=== PATIENT | female | born 1955 | race Caucasian/White ===

== ENCOUNTER 2022-04-24 09:21 | Emergency (ER) | payer OTHER ==
[~2022-04-24] VITALS: Ht 177.8 cm; Wt 158.8 kg
[2022-04-24 10:49] LABS: Basophils # (auto) 0.1 10 ^3/uL (0-0.2); Basophils % (auto) 0.6 % (0.0-2.0); Eosinophils # (auto) 0.1 10 ^3/uL (0-0.8); Eosinophils % (auto) 1.3 % (0.0-7.0); Hematocrit 40.2 % (36.0-46.0); Lymphocytes % (auto) 21.1 % (10.0-50.0); Mean Corpuscular Hemoglobin 30.4 pg (28.0-32.0); Mean Corpuscular Hgb Conc. 34.7 g/dL (32.0-36.0); Mean Corpuscular Volume 87.6 fL (80.0-100.0); Monocytes # (auto) 0.5 10 ^3/uL (0-1.3); Monocytes % (auto) 4.9 % (0.0-12.0); Neutrophils # (auto) 6.7 10 ^3/uL (1.6-8.6); Neutrophils % (auto) 72.1 % (37.0-80.0); Red Blood Cells 4.59 10^6/uL (4.0-5.20); Red Cell Distribution Width 14.1 % (11.8-14.3); White Blood Cell 9.3 10^3/uL (4.4-10.8)
[2022-04-24 11:09] LABS: Albumin 3.5 g/dL (3.4-5.0); Potassium 4.2 mmol/L (3.5-5.1)
[2022-04-24 11:17] LABS: Bilirubin, Total 0.5 mg/dL (0.2-1.0); Total Protein 7.7 g/dL (6.4-8.2)
[2022-04-24] MEDS ORDERED: FUROSEMIDE 20 MG TAB PO ONE (14:45)
[2022-04-24] MEDS ORDERED: PRED20TA2 PO (15:46)
[2022-04-24] MEDS ORDERED: PANT40TA2 PO (15:46)
[2022-04-24] MEDS ORDERED: LEVO-28 PO (15:46)
[2022-04-24 15:53] VITALS: BP 153/92
== END 2022-04-24 16:02 | disposition home or self-care (01) ==
LOC: ER 09:21
DX: I11.0 Hypertensive heart disease with heart failure (principal); I50.9 Heart failure, unspecified; J45.909 Unspecified asthma, uncomplicated; Z88.0 Allergy status to penicillin; Z88.8 Allergy status to other drugs, medicaments and biological substances
CPT/HCPCS: 36415; 71045; 80053; 84484; 85025; 93005

== ENCOUNTER 2024-10-06 12:01 | Emergency (ER) | payer OTHER ==
[~2024-10-06] VITALS: Ht 177.8 cm; Wt 177.0 kg
[~2024-10-06 12:01] MED LIST: LEVO500T91 PO; PANT40TA2 PO; PRED20TA2 PO
--- NOTE | 2024-10-06 12:24 | ED.PDOC ---
SOB-HPI HPI Comments 69y F who presents to the ED via EMS for chief complaint of shortness of breath. Per EMS , pt has been having shortness of breath since last Saturday getting progressively worse. Pt states she has history of CHF and states she was not taking her Lasix due to the constant need to use the restroom but states she started back up 2 days prior. Pt states earlier this AM, she had exacerbation of her shortness of breath and called EMS. Upon EMS arrival, pt had vitals checked and 02 sat was 93% on room air and started to complaint of associated chest pain. Pt was given breathing treatment with 0.4 Nitro and pt after treatment felt better with noted 02 sat of 97% on room air and all other vitals in normal range. Pt otherwise in the ED, denies diaphoresis, palpitations, nausea, vomiting, fever, cough, chills, headache or dizziness. Pt otherwise denies any other symptoms at this time. Vitals: Temp:98.4F Heart rate: 87 RR: 16 BP: 130/103 02 sat: 97% on room air PMH: HTN, CHF, HLD, ASTHMA, HYPOTHYROIDISM, AFIB PSH: DENIES Social history: DENIES tobacco use, DENIES ETOH use, DENIES drug use Meds: KCL, LASIX, LEVOTHYROXINE, METOPROLOL, XARELTO, ALBUTEROL, DILTIAZEM Allergies: PENICILLINS, CEPHALEXIN bradnie: HPI: Poor Historian. Past Medcial History: Past Surgical History: REVIEW OF SYSTEMS: CONSTITUTIONAL: Denies acute: fever, diaphoresis, chills, HEAD: Denies acute: headache, photophobia Eyes: Denies acute: Double vision, vision loss, eye pain, eye discharge. EARS: Denies acute: tinnitus, hearing loss, ear discharge, ear pain, THROAT: Denies acute: sore throat, swelling, difficulty swallowing , pain with swallowing, change in voice. NECK: Denies acute: neck pain, neck swelling, stiff neck. HEART: Denies acute : palpitations, LUNGS: Denies acute: wheezing, cough, hemoptysis ABDOMEN: Denies acute: abdominal pain, Nausea, Vomiting, diarrhea, melena , hematemesis, hematochezia SKIN: Denies acute: rash, redness, lesions, itchiness. EXTREMITIES: Denies acute: calf pain, numbness, tingling, weakness, denies pain in extremity. Denies acute: Low back pain. Neuro: Denies acute: focal neurological deficit, motor or sensory focal neurological deficit, tremors, seizure like activity, confusion, dizziness, change in mental status, loss of bowel or bladder function, cauda equina like symptoms. : Denies acute: dysuria, hematuria, flank pain, increase in urinary frequency. PSYCH: Denies acute: hallucination, suicidal ideation, homicidal ideation. FEMALE: Denies acute: abnormal vaginal bleeding, foul odor, unusual discharge. PHYSICAL EXAM: General: no acute distress, awake and alert. Head: normocephalic, atraumatic. Neck: supple, trachea is midline, no swelling. Throat: Normal phonation. Eyes:, no erythema, no purulent discharge, no proptosis, no icterus. Heart: regular rate, regular rhythm, no significant murmur appreciated. Lungs: no apparent respiratory distress, Able to speak in full sentences. Bilateral wheezing, bilateral rhonchi, no crackles. No stridors Abdomen: non tender to palpation, non distended, soft, no guarding, no rebound, + bowel sounds. Morbidly obese Neuro: Awake, Alert, oriented to name, self, situation, follows commands GCS=15. Speech is normal. Skin: no petechia, no purpura, no cyanosis, non-pale, not jaundice. Lower extremities: --1/2- Pitting edema no deformity, no focal swelling, no calf TTP. Makes eye contact. moves all four extremities. Face: no apparent facial droop. Chief Complaint: Shortness of Breath Time Seen by MD: 12:19 Reviewed notes: Stave Grader Notes, Medications, Allergies Information Source: Patient, Emergency Med Personnel Mode of Arrival: EMS Brought in by: EMS Past Medical History PAST MEDICAL HISTORY: Asthma, CHF, HTN, Thyroid Surgical History: Denies all surgeries EGG BREAKER History: No Pertinent EGG BREAKER History Family History Family History: Reviewed,noncontributory to illness Social History Smoker: Non-Smoker Alcohol: Denies ETOH Use Drugs: Denies Drug Use Lives In: Home Was a procedure done? Was a procedure done?: No Differential Dx Differential Diagnosis: Other (DDx include ACS, unstable angina, anxiety, PE, pneumothroax, neoplasm, cardiac ischemia, COPD, asthma, CHF, pleural effusion, tobacco abuse, pneumonia, hypoxia, hypercapnia, anemia., infection/sepsis., pulmonary edema. Asthma, Cardiac tamponade, infection.) X-Ray, Labs, Meds, VS Vital Signs Date Time Temp Pulse Resp B/P (MAP) Pulse Ox O2 Delivery O2 Flow Rate FiO2 10/06/24 19:50 92 17 Room Air* 0 21 10/06/24 19:50 98.1 92 17 144/89 (107) 95 98.1 10/06/24 13:06 22 94 Room Air* 0 21 10/06/24 12:33 16 93 Room Air* 0 21 10/06/24 12:27 98.1 82 16 130/103 (112) 97 Lab Test 10/06/24 15:50 10/06/24 13:43 10/06/24 12:30 Range/Units Troponin I High Sensitivity 4 4 3 L </=34 ng/L White Blood Count 9.5 4.4-10.8 10^3/uL Red Blood Count 4.59 4.0-5.20 10^6/uL Hemoglobin 14.0 12.2-16.2 g/dL Hematocrit 41.6 36.0-46.0 % Mean Corpuscular Volume 90.6 80.0-100.0 fL Mean Corpuscular Hemoglobin 30.5 28.0-32.0 pg Mean Corpuscular Hemoglobin Concent 33.7 32.0-36.0 g/dL Red Cell Distribution Width 13.9 11.8-14.3 % Platelet Count 248 140-450 10^3/uL Mean Platelet Volume 6.2 L 6.9-10.8 fL Neutrophils (%) (Auto) 72.7 37.0-80.0 % Lymphocytes (%) (Auto) 18.1 10.0-50.0 % Monocytes (%) (Auto) 6.0 0.0-12.0 % Eosinophils (%) (Auto) 2.7 0.0-7.0 % Basophils (%) (Auto) 0.5 0.0-2.0 % Neutrophils # (Auto) 6.9 1.6-8.6 10 ^3/uL Lymphocytes # (Auto) 1.7 0.4-5.4 10 ^3/uL Monocytes # (Auto) 0.6 0-1.3 10 ^3/uL Eosinophils # (Auto) 0.3 0-0.8 10 ^3/uL Basophils # (Auto) 0 0-0.2 10 ^3/uL Nucleated Red Blood Cells 0.0 % Sodium Level 141 136-145 mmol/L Potassium Level 4.5 3.5-5.1 mmol/L Chloride Level 107 98-107 mmol/L Carbon Dioxide Level 33 H 20-31 mmol/L Anion Gap 1 L 5-15 Blood Urea Nitrogen 13 9-23 mg/dL Creatinine 0.77 0.550-1.02 mg/dL Glomerular Filtration Rate Calc 84 >90 mL/min BUN/Creatinine Ratio 16.9 10.0-20.0 Serum Glucose 102 74-106 mg/dL Calcium Level 9.5 8.7-10.4 mg/dL Magnesium Level 2.1 1.6-2.6 mg/dL Total Bilirubin 0.7 0.2-1.0 mg/dL Aspartate Amino Transferase (AST) 16 13-40 U/L Alanine Aminotransferase (ALT) 23 7-40 U/L Alkaline Phosphatase 81 46-116 U/L B-Type Natriuretic Peptide 115.57 0-100 pg/mL Total Protein 6.9 5.7-8.2 g/dL Albumin 4.4 3.2-4.8 g/dL Current Medications Medications (Trade) Dose Ordered Sig/Sabine Route Start Time Stop Time Status Last Admin Albuterol (Ventolin Medneb) 2.5 mg ONCE ONCE [facility] 10/06/24 12:30 10/06/24 12:31 DC 10/06/24 13:04 Ipratropium [place] (Atrovent Medneb) 1 mg ONCE ONCE [facility] 10/06/24 12:30 10/06/24 12:31 [place] 10/06/24 13:05 [place] [id number] Ph: [phone] DIAGNOSTIC IMAGING Diagnostic Imaging Report : [id number] Signed PATIENT: BRANDIE HOPE ACCT: [id number] UNIT: [id number] : 1955 LOC: ER ROOM / BED: / AGE / SEX: 69 / F ADM STATUS: REG ER SERVICE 1216 ORDERING PHYSICIAN: SE SOLIS DO PROCEDURE(s): CXRP - CHEST PORTABLE REASON: sob ORDER NUMBER(s): [id number], ACCESSION NUMBER(s): [id number] EXAM: XY CHEST PORTABLE Indication:sob Technique: Single frontal view of the chest was obtained Comparison: CHEST PORTABLE on DOS: 04/24/22, CXRP on DOS: 04/24/22 FINDINGS: Lines and Tubes: None Lungs: No focal consolidation. Pleura: No effusion. No pneumothorax. Cardiomediastinal contours: Unremarkable Bones: No acute osseous abnormality. IMPRESSION: No acute cardiopulmonary disease. ATED BY: LYNN RANDALL MD DICTATED DATE/TIME: 10/06/24 135 SIGNED BY: LYNN RANDALL MD SIGNED DATE/TIME: 10/06/241355 CC: Time of 1ST Reevaluation: 20:06 (The case was discussed with the admitting team (HPI, physical exam, labs and diagnostic tests that were available at the time of disposition, ED course, treatment plan) on the phone. They agreed to evaluate the patient and make the proper disposition. Please see their consultation notes and final disposition. DOE Lopez. ) Reevaluation 1ST: Improved Time of 2ND Reevaluation: 20:10 (The nurse told me that the patient refused Lasix and Solu-Medrol and wants to leave against medical advice. She does not want to stay in the hospital anymore.) Reevaluation 2ND: Unchanged Patient Education/Counseling: Diagnosis, Treatment, Prognosis Family Education/Counseling: No Family Present Comments Left against medical advice Patient presented with the above HPI.--dyspnea respiratory distress----workup was initiated. patient was found with the above mentioned diagnosis. Patient was ordered DuoNeb treatment and Solu-Medrol and Lasix. Patient only received a DuoNeb treatment. There was a delay in her receiving Lasix and Solu- Medrol. Patient ED course and VS have been stabilized. Patient has been reassessed in the ED and remained in a stable condition. Patient has been observed in the ED adequate length of time to insure improvement/stability. patient was admitted to the medicine team for further evaluation and treatment of their presentation. However patient decided to leave against medical advice. She did not want to wait for a bed this long. She also declined Lasix and Solu-Medrol. All the reports of any imaging studies that were ordered by myself were reviewed by myself. Departure 1 Departure Time of Disposition: 20:10 Impression: Primary Impression: CHF exacerbation Additional Impressions: COPD exacerbation Left against medical advice Disposition: LEFT AGAINST MEDICAL ADVICE Admit to: Tele Condition: Guarded Additional Instructions: You are leaving against medical advice. Please seek medical help HALI. You have an inhaler at home please take it as needed. You have Lasix at home please use it as prescribed. Follow up with Cardiology and pulmonology HALI. You are welcome to return to the emergency department any time if you change your mind. Discharged With: Self Critical Care Note Critical Care Time?: Yes (45 min-critical care time only) Heart Score Heart Score: Heart Score Response (Comments) Value History Slightly Suspicious 0 EKG Normal 0 Age >65 2 Risk Factors >3 or Hx ASHD 2 Troponin Normal limit 0 Total 4 I personally scribed for SE SOLIS DO ([email or web address]) on 10/06/24 at 12:24. Electronically submitted by Annika Loo ([email or web address]). I personally scribed for SE SOLIS DO ([email or web address]) on 10/06/24 at 14:53. Electronically submitted by Annika Loo ([email or web address]). I personally scribed for SE SOLIS DO ([email or web address]) on 10/06/24 at 20:10. Electr onically submitted by Annika Loo ([email or web address]). SE SOLIS DO Oct 06, 2024 12:24
[2024-10-06 12:47] LABS: Basophils # (auto) 0 10 ^3/uL (0-0.2); Basophils % (auto) 0.5 % (0.0-2.0); Eosinophils # (auto) 0.3 10 ^3/uL (0-0.8); Eosinophils % (auto) 2.7 % (0.0-7.0); Hematocrit 41.6 % (36.0-46.0); Lymphocytes # (auto) 1.7 10 ^3/uL (0.4-5.4); Lymphocytes % (auto) 18.1 % (10.0-50.0); Mean Corpuscular Hemoglobin 30.5 pg (28.0-32.0); Mean Corpuscular Hgb Conc. 33.7 g/dL (32.0-36.0); Mean Corpuscular Volume 90.6 fL (80.0-100.0); Monocytes # (auto) 0.6 10 ^3/uL (0-1.3); Neutrophils # (auto) 6.9 10 ^3/uL (1.6-8.6); Neutrophils % (auto) 72.7 % (37.0-80.0); Platelet Count (auto) 248 10^3/uL (140-450); Red Blood Cells 4.59 10^6/uL (4.0-5.20); Red Cell Distribution Width 13.9 % (11.8-14.3); White Blood Cell 9.5 10^3/uL (4.4-10.8)
[2024-10-06 13:01] LABS: Alanine Aminotransferase 23 U/L (7-40); Albumin 4.4 g/dL (3.2-4.8); Alkaline Phosphatase 81 U/L (46-116); Anion Gap 1 (5-15); Aspartate Aminotransferase 16 U/L (13-40); BUN/Creatinine Ratio 16.9 (10.0-20.0); Blood Urea Nitrogen 13 mg/dL (9-23); Calcium 9.5 mg/dL (8.7-10.4); Carbon Dioxide 33 mmol/L (20-31); Chloride 107 mmol/L (98-107); Glucose 102 mg/dL (74-106); Magnesium 2.1 mg/dL (1.6-2.6); Potassium 4.5 mmol/L (3.5-5.1); Sodium 141 mmol/L (136-145)
[2024-10-06 13:02] LABS: Bilirubin, Total 0.7 mg/dL (0.2-1.0); Total Protein 6.9 g/dL (5.7-8.2)
[2024-10-06] MEDS: ALBUTEROL SULF 2.5 MG/0.5ML(0.5%) NEB SOLN NEB ONE (13:04)
[2024-10-06] MEDS: IPRATROPIUM BROM 0.5 MG/2.5ML INH SOL NEB ONE (13:05)
--- NOTE | 2024-10-06 13:58 | DVH ---
EXAM: XY CHEST PORTABLE Indication:sob Technique: Single frontal view of the chest was obtained Comparison: CHEST PORTABLE on DOS: 04/24/22, CXRP on DOS: 04/24/22 FINDINGS: Lines and Tubes: None Lungs: No focal consolidation. Pleura: No effusion. No pneumothorax. Cardiomediastinal contours: Unremarkable Bones: No acute osseous abnormality. IMPRESSION: No acute cardiopulmonary disease.
[2024-10-06 19:50] VITALS: BP 144/89; PULSE 92; RESP 17; TEMP 98.1; O2SAT 95
[2024-10-06] MEDS: methylPREDNISolone SOD SUCC 125 MG/2 ML VL IV ONE (20:19)
[2024-10-06] MEDS: FUROSEMIDE 100 MG/10ML VIAL IV ONE (20:19)
--- NOTE | 2024-10-07 14:46 | DVHINCON2 ---
Date Seen: Oct 06, 2024 Referring Physician ER Physician Dr. Sinha Reason for Consultation Shortness of breath CHF exacerbation History of Present Illness 69-year-old female with a known history of congestive heart failure, hypertension, hypothyroidism dyslipidemia to the hospital with the acute shortness of breath patient was found to have mild CHF exacerbation. Patient does take Lasix at home but she has stopped taking it as it was making her being more and more in the evening. Mentioned the patient has was started on Lasix two days ago. Patient was recommended to be admitted but she requested to go home. Past Medical History Congestive heart. , asthma, hypertension, hypothyroidism Past Surgical History None significant. Allergies: Coded Allergies: Cephalexin (Verified Allergy, Unknown, 04/24/22) Penicillins (Verified Allergy, Unknown, 04/24/22) Home Meds Active Scripts Levofloxacin Hemihydrate (LEVOFLOXACIN) 500 Mg Tab, 500 MG PO DAILY for 10 Days, #10 MG Prov:JARAD GOMEZ MD 04/24/22 Pantoprazole Sodium Sesquihydr (Protonix) 40 Mg Tab, 40 MG PO DAILY for 10 Days, #10 TAB Prov:JARAD GOMEZ MD 04/24/22 Prednisone (Prednisone) 20 Mg Tab, 20 MG PO DAILY for 10 Days, #10 MG Prov:JARAD GOMEZ MD 04/24/22 Vital Signs Vital Signs Date Time Temp Pulse Resp B/P (MAP) Pulse Ox O2 Delivery O2 Flow Rate FiO2 10/06/24 19:50 92 17 Room Air* 0 21 10/06/24 19:50 98.1 144/89 (107) 95 98.1 Labs/Diagnostic Data Labs Test 10/06/24 15:50 10/06/24 12:30 Range/Units Troponin I High Sensitivity 4 </=34 ng/L White Blood Count 9.5 4.4-10.8 10^3/uL Red Blood Count 4.59 4.0-5.20 10^6/uL Hemoglobin 14.0 12.2-16.2 g/dL Hematocrit 41.6 36.0-46.0 % Mean Corpuscular Volume 90.6 80.0-100.0 fL Mean Corpuscular Hemoglobin 30.5 28.0-32.0 pg Mean Corpuscular Hemoglobin Concent 33.7 32.0-36.0 g/dL Red Cell Distribution Width 13.9 11.8-14.3 % Platelet Count 248 140-450 10^3/uL Mean Platelet Volume 6.2 L 6.9-10.8 fL Neutrophils (%) (Auto) 72.7 37.0-80.0 % Lymphocytes (%) (Auto) 18.1 10.0-50.0 % Monocytes (%) (Auto) 6.0 0.0-12.0 % Eosinophils (%) (Auto) 2.7 0.0-7.0 % Basophils (%) (Auto) 0.5 0.0-2.0 % Neutrophils # (Auto) 6.9 1.6-8.6 10 ^3/uL Lymphocytes # (Auto) 1.7 0.4-5.4 10 ^3/uL Monocytes # (Auto) 0.6 0-1.3 10 ^3/uL Eosinophils # (Auto) 0.3 0-0.8 10 ^3/uL Basophils # (Auto) 0 0-0.2 10 ^3/uL Nucleated Red Blood Cells 0.0 % Sodium Level 141 136-145 mmol/L Potassium Level 4.5 3.5-5.1 mmol/L Chloride Level 107 98-107 mmol/L Carbon Dioxide Level 33 H 20-31 mmol/L Anion Gap 1 L 5-15 Blood Urea Nitrogen 13 9-23 mg/dL Creatinine 0.77 0.550-1.02 mg/dL Glomerular Filtration Rate Calc 84 >90 mL/min BUN/Creatinine Ratio 16.9 10.0-20.0 Serum Glucose 102 74-106 mg/dL Calcium Level 9.5 8.7-10.4 mg/dL Magnesium Level 2.1 1.6-2.6 mg/dL Total Bilirubin 0.7 0.2-1.0 mg/dL Aspartate Amino Transferase (AST) 16 13-40 U/L Alanine Aminotransferase (ALT) 23 7-40 U/L Alkaline Phosphatase 81 46-116 U/L B-Type Natriuretic Peptide 115.57 0-100 pg/mL Total Protein 6.9 5.7-8.2 g/dL Albumin 4.4 3.2-4.8 g/dL Assessment 69-year-old Female who has a known history of congestive heart., hypertension, hypothyroid initially went to the hospital with shortness breath monitor have 1. Shortness of breadth nicotine 2. BT support. Currently not in exacerbation 3. Hypertension 4. Hypothyroidism -continue Lasix at home, please follow up with PCP in one week and Cardiology Cardiology in 1-2 weeks, please return to ER if symptoms gets worse. Problems(with codes): (1) CHF (congestive heart failure) (2) HTN (hypertension) Plan discussed with: Other Date of Service: Oct 06, 2024 Billing Provider: SEBAS CHACON MD Common Visit Codes: NOT BILLABLE SEBAS CHACON MD Oct 07, 2024 14:46
== END 2024-10-06 20:20 | disposition left against medical advice (07) ==
LOC: EDBD 12:01 → ER 12:01
DX: J44.1 Chronic obstructive pulmonary disease with (acute) exacerbation (principal); I11.0 Hypertensive heart disease with heart failure; I50.89 Other heart failure; E03.9 Hypothyroidism, unspecified; Z79.899 Other long term (current) drug therapy; Z88.0 Allergy status to penicillin
CPT/HCPCS: 36415; 71045; 80053; 83735; 83880; 84484; 85025; 94640